=== PATIENT | female | born 1965 | race Caucasian/White ===

== ENCOUNTER 2017-04-18 18:21 | Emergency (ER) | payer BC ==
[2017-04-18] MEDS ORDERED: Albuterol HFA INHALER* 8 gm MDI INH ONE (20:47)
[2017-04-18] MEDS ORDERED: Azithromycin TAB* 250 MG PO ONE (20:47)
[2017-04-18] MEDS ORDERED: Albuterol/Ipratropium NEB.SOL* Albuterol 2.5 MG/Ipratropium 0.5 MG 3 ML INH ONE (21:27)
--- NOTE | 2017-04-18 21:38 | UC ---
Shortness of Breath HPI - HPI Summary HPI Summary: Patient presents to the with CC of shortness of breath, cough, wheezing, mucous production and post nasal drip x 2 days. She denies any other symptoms. Denies fevers, sweats or chills. Takes no medications. She states she has asthma and when she gets a cold - the symptoms are acute onset and get "terrible." She has never had one this bad before. On arrival, she is wheezing , but in no acute respiratory distress. Denies sick contacts. Denies travel. - History of Current Complaint Chief Complaint: UCRespiratory Stated Complaint: CHEST COLD Time Seen by Provider: 04/18/17 20:32 Hx Obtained From: Patient Hx Last Menstrual Period: 45 days ago ?: No Onset/Duration: Sudden Onset Timing: Constant Dyspnea At: Rest Aggrevating Factors: Deep Breaths, Recumbent Position Alleviating Factors: OTC Meds Associated Signs & Symptoms: Positive: Cough (Productive), Chest Pain w/Cough, Nasal Congestion - Risk Factors Pulmonary Embolism: Negative, Smoking Cardiac: Negative Pseudomonas: Chronic Lung Disease Tuberculosis: Immune Deficiency - Allergy/Home Medications Allergies/Adverse Reactions: Allergies Allergy/AdvReac Type Severity Reaction Status Date / Time No Known Allergies Allergy Verified 04/18/17 20:21 PMH/Surg Hx/FS Hx/Imm Hx Previously Healthy: Yes - Surgical History Surgical History: None - Social History Occupation: Employed Full-time Lives: With Family Alcohol Use: None Substance Use Type: None Smoking Status (MU): Heavy Every Day Tobacco Smoker Review of Systems Constitutional: Negative Skin: Negative Respiratory: Shortness Of Breath, Cough Cardiovascular: Negative Motor: Negative Neurovascular: Negative Neurological: Negative Psychological: Negative Is Patient Immunocompromised?: No All Other Systems Reviewed And Are Negative: Yes Physical Exam Triage Information Reviewed: Yes Appearance: Well-Appearing, Well-Nourished Vital Signs: Initial Vital Signs Temp 98.8 F 04/18/17 20:18 Pulse 98 04/18/17 20:18 Resp 18 04/18/17 20:18 BP 124/82 04/18/17 20:18 Pulse Ox 95 04/18/17 20:18 Vital Signs Reviewed: Yes Eye Exam: Normal Eyes: Positive: Conjunctiva Clear Neck exam: Normal Neck: Positive: Supple, No Lymphadenopathy Respiratory Exam: Normal Respiratory: Positive: Chest non-tender, Wheezing Cardiovascular Exam: Normal Cardiovascular: Positive: RRR Musculoskeletal Exam: Normal Musculoskeletal: Positive: Strength Intact Neurological Exam: Normal Neurological: Positive: Alert Psychological: Positive: Normal Response To Family Skin Exam: Normal Shortness of Breath Dx - Course Course Of Treatment: Patient with congestion and cough with wheezing. She is given albuterol inhaler, duo-neb in , z-luciana, prednisone 50mg x 5 days. She notes to feeling better prior to leaving. She is OK for discharge and return precautions given. She is dx with bronchitis. - Differential Dx/Diagnosis Differential Diagnosis/HQI/PQRI: Bronchitis, Chest Wall Pain, COPD Exacerbation , Pneumonia Provider Diagnoses: Bronchitis Discharge - Discharge Plan Condition: Stable Disposition: HOME Prescriptions: Azithromycin TAB* [Zithromax TAB (Z-LUCIANA) 250 mg #6 tabs] 250 mg PO DAILY #4 tab predniSONE TAB* [Deltasone TAB*] 50 mg PO DAILY #5 tab MDD 1 Patient Education Materials: Acute Bronchitis (ED) Referrals: No Primary Care Phys,NOPCP [Primary Care Provider] - Additional Instructions: Take medications as prescribed I have given you an albuterol inhaler - please use every 4 hours as needed for shortness of breath Take Prednisone once daily in the morning - for 5 days You have been given 2 tabs tonight in UC or the antibiotic - you will need to take 1 tab daily for the next 4 days If you develop any worsening SOB - you need to go to the ED
[2017-04-18 22:31] VITALS: BP 120/80
[2017-04-18] MEDS ORDERED: Albuterol/Ipratropium NEB.SOL* Albuterol 2.5 MG/Ipratropium 0.5 MG 3 ML INH SCH (23:00)
== END 2017-04-18 22:40 | disposition home or self-care (01) ==
LOC: UCEAST 18:21
DX: J40 Bronchitis, not specified as acute or chronic (principal); F17.200 Nicotine dependence, unspecified, uncomplicated
CPT/HCPCS: 99213; A9270-GY; G0463